=== PATIENT | male | born 1955 | race Caucasian/White ===

== ENCOUNTER 2017-07-06 07:22 | Observation (INO) | payer OTHER ==
[~2017-07-06 07:22] MED LIST: IV RINGERS,LACTATED 1000ML 1,000 ML IV; LIDOCAINE 1% PF 2 ML VIAL. ID; MORPHINE SULFATE 4 MG/ML DISP.SYRIN. IV; ONDANSETRON PF 4 MG/2 ML VIAL. IV; PROCHLORPERAZINE 10 MG/2 ML VIAL. IV; fentaNYL PF VIAL 100 MCG/2 ML VIAL IV
[2017-07-06] MEDS ORDERED: fentaNYL PF VIAL 100 MCG/2 ML VIAL ×4 (07:58→13:12)
[2017-07-06] MEDS ORDERED: PROPOFOL 20 ML IV ×2 (07:58→10:22)
[2017-07-06] MEDS ORDERED: LIDOCAINE 2% PF Vial for OR 5 ML VIAL. (07:58)
[2017-07-06] MEDS: IV RINGERS,LACTATED 1000ML 1,000 ML IV (08:21)
[2017-07-06] MEDS: BACITRACIN 50,000 UNIT in IV NORMAL SALINE 500ML BAG 500 ML IRR (10:18)
[2017-07-06] MEDS: BUPIVACAINE-EPI 0.25%-1:200000 50 ML VIAL. (10:18)
[2017-07-06] MEDS ORDERED: DEXAMETHASONE SOD PHOS 20 MG/5 ML VIAL. (10:22)
[2017-07-06] MEDS ORDERED: SEVOFLURANE 31 TO 60 MINUTES. IH (10:22)
[2017-07-06] MEDS ORDERED: ONDANSETRON PF 4 MG/2 ML VIAL. (10:22)
[2017-07-06] MEDS ORDERED: KETOROLAC 30 MG/ML INJ FOR OR. INJ (11:52)
[2017-07-06] MEDS ORDERED: PROCHLORPERAZINE 10 MG/2 ML VIAL. (12:20)
[2017-07-06] MEDS ORDERED: MORPHINE SULFATE 4 MG/ML DISP.SYRIN. (12:30)
[2017-07-06] MEDS: fentaNYL PF VIAL 100 MCG/2 ML VIAL IV ×4 (12:42→13:31)
[2017-07-06] MEDS: PROCHLORPERAZINE 10 MG/2 ML VIAL. IV (12:42)
[2017-07-06] MEDS: MORPHINE SULFATE 4 MG/ML DISP.SYRIN. IV ×6 (12:43→15:33)
[2017-07-06] MEDS: oxyCODONE/APAP 5/325 1 TAB TABLET PO ×2 (13:14→17:58)
[2017-07-06] MEDS ORDERED: MORPHINE SULFATE 4 MG/ML DISP.SYRIN. IV (14:30)
[2017-07-06] MEDS ORDERED: ONDANSETRON PF 4 MG/2 ML VIAL. IV (14:30)
[2017-07-06] MEDS ORDERED: oxyCODONE/APAP 5/325 1 TAB TABLET PO (14:45)
[2017-07-06] MEDS: ATORVASTATIN CALCIUM 20 MG TABLET PO (20:37)
[2017-07-07] MEDS: oxyCODONE/APAP 5/325 1 TAB TABLET PO ×2 (01:51→06:39)
[2017-07-07] MEDS: DOCUSATE SODIUM 100 MG CAPSULE. PO (09:16)
[2017-07-07] MEDS: CHOLECALCIFEROL (VITAMIN D3) 1,000 UNIT TABLET PO (09:16)
== END 2017-07-07 11:10 | disposition home or self-care (01) ==
LOC: SURG 07:22 → 4 NORTH 07-07 11:10
DX: K40.20 Bilateral inguinal hernia, without obstruction or gangrene, not specified as recurrent (principal); D17.6 Benign lipomatous neoplasm of spermatic cord
CPT/HCPCS: 49505; 88304; 96374; A7015; C1781; G0378; G0379; J0690; J0780; J1100; J1885; J2270; J2405; J2704; J3010; J3490; J7040; J7120